=== PATIENT | male | born 1945 | race Caucasian/White ===

== ENCOUNTER 2018-10-09 14:20 | Emergency (ER) | payer MEDICARE ==
[~2018-10-09] VITALS: Ht 175.3 cm; Wt 83.5 kg
[2018-10-09 14:25] VITALS: Ht 175.3 cm; Wt 83.5 kg
[2018-10-09] MEDS ORDERED: NORVASC10 MG (14:26)
[2018-10-09] MEDS ORDERED: PROSCAR5 MG PO (14:26)
[2018-10-09 14:47] LABS: APPEARANCE CLEAR (CLEAR); BILIRUBIN NEGATIVE (NEGATIVE); COLOR YELLOW (YELLOW); GLUCOSE 50 mg/dL (NEGATIVE); KETONE NEGATIVE (NEGATIVE); NITRITE NEGATIVE (NEGATIVE); PROTEIN NEGATIVE (NEGATIVE); SPECIFIC GRAVITY 1.015 (1.005-1.020); UROBILINOGEN NORMAL (NORMAL)
[2018-10-09 14:48] LABS: BACTERIA NONE SEEN /hpf (NONE SEEN); EPITHELIAL CELLS NSEEN /hpf (0-5); RED CELLS - URINE 0-5 /hpf (0-5); WHITE CELLS - URINE 0-5 /hpf (0-5)
[2018-10-09 15:33] LABS: BASOPHILS 0.1 % (0-2); EOSINOPHILS 0.7 % (0-7); HEMATOCRIT 42.7 % (42.0-54.0); HEMOGLOBIN 15.1 g/dL (13.5-17.5); IMMATURE GRANULOCYTES 0.1 % (0-5); LYMPHOCYTES 11.8 % (15-50); MCH 31.6 pg (26.0-34.0); MCHC 35.4 g/dL (31.0-37.0); MCV 89.3 fL (80.0-100.0); MEAN PLATELET VOLUME 10.2 fL (7.4-10.4); MONOCYTES 11.6 % (2-11); NEUTROPHILS 75.7 % (40-80); PLATELET COUNT 168 10x3/uL (130-400); RBC 4.78 10x6/uL (4.20-6.10); RDW 13.2 % (11.5-14.5); WBC 8.8 10x3/uL (4.8-10.8)
[2018-10-09 15:56] LABS: ANION GAP 13.3 mmol/L (8-16); BILIRUBIN - TOTAL 0.92 mg/dL (0.2-1.3); CALCIUM 9.2 mg/dL (8.5-10.1); CARBON DIOXIDE 29.5 mmol/L (21.0-32.0); CREATININE - SERUM 1.3 mg/dL (0.6-1.3); POTASSIUM - SERUM 3.8 mmol/L (3.5-5.1); PROTEIN - SERUM 8.1 g/dL (6.4-8.2)
[2018-10-09 20:00] VITALS: BP 132/78
== END 2018-10-09 20:02 | disposition home or self-care (01) ==
LOC: D.ER 14:20
PROVIDERS: Family Medicine
DX: R33.9 Retention of urine, unspecified (principal); N40.0 Benign prostatic hyperplasia without lower urinary tract symptoms; R11.0 Nausea; I10 Essential (primary) hypertension

== ENCOUNTER 2018-11-16 08:00 | Day surgery (SDC) | payer MEDICARE ==
[2018-11-15 15:45] LABS: HEMATOCRIT 43.3 % (42.0-54.0); HEMOGLOBIN 15.3 g/dL (13.5-17.5); MCHC 35.3 g/dL (31.0-37.0); MCV 87.8 fL (80.0-100.0); MEAN PLATELET VOLUME 10.1 fL (7.4-10.4); RBC 4.93 10x6/uL (4.20-6.10); RDW 13.2 % (11.5-14.5); WBC 6.4 10x3/uL (4.8-10.8)
[~2018-11-16] VITALS: Ht 175.3 cm; Wt 83.5 kg
--- NOTE | ~2018-11-16 | OP ---
PATIENT NAME: JOHAN GUTIERRES MEDICAL RECORD: [id number] :45 LOCATION:.[facility] ADMISSION DATE: SURGEON: JOHAN PENALOZA MD DATE OF OPERATION: 11/16/2018 SURGEON: Johan Penaloza MD ANESTHESIA: TIVA by Dr. Josse Acosta. DIAGNOSIS: Obstructive BPH and urinary retention. PROCEDURE: Cystoscopy and UroLift times 5 implants (3 on the right lobe). FINDINGS: Bilateral lateral lobe hyperplasia with some median lobe hyperplasia. Heavily trabeculated bladder with diverticula. No bladder tumors. IPSS Equals 28 and quality of life score is 6. BLOOD LOSS: Minimal. CLINICAL HISTORY: This is a 73-year-old male, who came to the Emergency Room with urinary retention on 10/09/2018. He has been on Flomax for many years. About 1 month prior to his going into urinary retention, he was started on Proscar also by his family physician. He has significant voiding symptoms prior to going into urinary retention including nocturia times 5-6. He had IPSS score of 28 and quality of life score of 6. On rectal examination, he had a 40 gram prostate. He comes today to have the UroLift procedure done. HE IS ALLERGIC TO IODINE AND PENICILLIN. He was given Levaquin auto air conditioning installer to the OR. Since he has an indwelling Lopez catheter, his Lopez catheter was removed prior to him being prepped and draped. DESCRIPTION OF PROCEDURE: The patient was given IV sedation. His catheter was removed and then he was prepped and draped. The UroLift scope was introduced. He does not have any urethral strictures. He does have bilateral lateral lobe hyperplasia causing obstruction. There was also a moderately large median lobe. The bladder itself shows signs of heavy trabeculation with diverticula. No bladder tumors were seen. We then placed the bladder neck implants. These are actually placed 2 cm distal to the bladder neck. I placed in the anterior lateral lobes, 1 on each side. We then went to the verumontanum level and placed 2 more implants. He had a fairly open channel except the right mid portion of the lateral lobe was still obstructive. We placed a fifth implant in the mid portion of the right lateral lobe in the anterior part of the lateral lobe. This opened up a nice channel all the way through the anterior urethra. The scope was then removed. A 16-Yakut Lopez catheter was placed into the bladder and the balloon was inflated with 10 cc of sterile water. I will see him in followup in 1-2 days to remove the catheter for a voiding trial. TRANSINT:[id number] Voice Confirmation ID: [id number] DOCUMENT ID: [id number] OPERATIVE REPORT [id number] JOHAN GUTIERRES, JOHAN Schmidt MD at 1136 CC: [id number] DICTATION DATE: 11/16/18923 FINANCIAL ADVOCATE: 11/16/18 [id number] [place] [address]
[2018-11-16 07:34] VITALS: BP 141/92; Ht 175.3 cm; Wt 83.5 kg
[~2018-11-16 08:00] MED LIST: NORVASC5 MG PO; PROSCAR5 MG PO
== END 2018-11-16 10:55 | disposition home or self-care (01) ==
LOC: D.OPS 08:00 → D.PAN 11:00 → D.OPS 13:15 → D.PAN 13:15 → D.OPS 14:15 → D.PAN 14:15
PROVIDERS: Anesthesiology
DX: N40.1 Benign prostatic hyperplasia with lower urinary tract symptoms (principal); N13.8 Other obstructive and reflux uropathy; R33.8 Other retention of urine; N32.89 Other specified disorders of bladder; N32.3 Diverticulum of bladder; Z01.812 Encounter for preprocedural laboratory examination

== ENCOUNTER 2018-11-18 19:22 | Emergency (ER) | payer MEDICARE ==
[~2018-11-18] VITALS: Ht 175.3 cm; Wt 81.8 kg
[2018-11-18 19:41] VITALS: Ht 175.3 cm; Wt 81.8 kg
[2018-11-18 21:05] LABS: APPEARANCE CLOUDY (CLEAR); BILIRUBIN NEGATIVE (NEGATIVE); COLOR YELLOW (YELLOW); GLUCOSE NEGATIVE (NEGATIVE); KETONE NEGATIVE (NEGATIVE); NITRITE POSITIVE (NEGATIVE); PROTEIN TRACE mg/dL (NEGATIVE); SPECIFIC GRAVITY 1.015 (1.005-1.020); UROBILINOGEN NORMAL (NORMAL)
[2018-11-18 21:06] LABS: BACTERIA MANY /hpf (NONE SEEN); EPITHELIAL CELLS 0-5 /hpf (0-5); WHITE CELLS - URINE >50 /hpf (0-5)
[2018-11-18] MEDS ORDERED: MACROBID100 MG PO (21:33)
[2018-11-18 21:41] VITALS: BP 153/95
== END 2018-11-18 21:42 | disposition home or self-care (01) ==
LOC: D.ER 19:22
PROVIDERS: Emergency Medicine
DX: R33.9 Retention of urine, unspecified (principal); R10.2 Pelvic and perineal pain; I10 Essential (primary) hypertension